=== PATIENT | female | born 1985 | race Caucasian/White ===

== ENCOUNTER 2019-09-19 11:49 | Emergency (ER) | payer OTHER ==
[~2019-09-19] VITALS: Ht 152.4 cm; Wt 68.0 kg
== END 2019-09-19 13:17 | disposition home or self-care (01) ==
LOC: ER 11:49
DX: R53.1 Weakness (principal); Z56.3 Stressful work schedule

== ENCOUNTER 2020-08-31 15:39 | Outpatient (CLI) | payer OTHER | END 2020-08-31 15:48 | disposition home or self-care (01) | LOC: RAD 15:39 | PROVIDERS: ATTEND General Practice | DX: R05 Cough (principal); Z86.16 Personal history of COVID-19; J21.8 Acute bronchiolitis due to other specified organisms ==

== ENCOUNTER 2020-12-20 14:14 | Emergency (ER) | payer OTHER ==
[~2020-12-20] VITALS: Ht 152.4 cm; Wt 59.9 kg
== END 2020-12-20 19:59 | disposition home or self-care (01) ==
LOC: ER 14:14
DX: B34.9 Viral infection, unspecified (principal); Z20.822 Contact with and (suspected) exposure to COVID-19

== ENCOUNTER 2022-09-18 14:29 | Emergency (ER) | payer OTHER ==
[~2022-09-18] VITALS: Ht 152.4 cm; Wt 62.1 kg
== END 2022-09-18 21:05 | disposition home or self-care (01) ==
LOC: ER 14:29
DX: K21.9 Gastro-esophageal reflux disease without esophagitis (principal)